=== PATIENT | female | born 1940 | race Caucasian/White ===

== ENCOUNTER 2019-11-07 18:30 | Emergency (ER) | payer MEDICARE ==
[~2019-11-07] VITALS: Ht 157.5 cm; Wt 54.4 kg
[2019-11-07] MEDS ORDERED: Bumetanide0.5 MG PO (18:39)
[2019-11-07] MEDS ORDERED: PROAIR DIGIHAL90 MCG IH (18:39)
[2019-11-07] MEDS ORDERED: BACITO TOP (20:41)
[2019-11-07] MEDS ORDERED: Norco 5-325 Ta1 EACH PO (20:42)
== END 2019-11-07 22:01 | disposition home or self-care (01) ==
LOC: ER 18:30
DX: S51.811A Laceration without foreign body of right forearm, initial encounter (principal); S81.812A Laceration without foreign body, left lower leg, initial encounter; M25.511 Pain in right shoulder; J44.9 Chronic obstructive pulmonary disease, unspecified; Z88.5 Allergy status to narcotic agent; Z87.891 Personal history of nicotine dependence; Z23 Encounter for immunization; W10.0XXA Fall (on)(from) escalator, initial encounter
CPT/HCPCS: 70450; 72125; 73030; 73080; 73090; 73590; 90471; 90714; 99284-25; A9270-GY

== ENCOUNTER 2021-02-12 00:18 | Inpatient (IN) | payer OTHER, MEDICARE ==
[~2021-02-12] VITALS: Ht 157.5 cm; Wt 56.7 kg
[~2021-02-12 00:18] MED LIST: BACITO TOP; Bumetanide0.5 MG PO; Norco 5-325 Ta1 EACH PO; PROAIR DIGIHAL90 MCG IH
[2021-02-12 03:27] LABS: BASOPHILS ABSOLUTE AUTO 0.03 K/mm3 (0.00-0.23); BASOPHILS PERCENT AUTO 0 % (0-2); EOSINOPHILS ABSOLUTE AUTO 0.05 K/mm3 (0.00-0.68); EOSINOPHILS PERCENT AUTO 1 % (0-6); Hematocrit 40.8 % (33.0-51.0); Hemoglobin 13.1 g/dL (11.5-16.0); IMMATURE GRAN ABSOLUTE AUTO 0.04 K/mm3 (0.00-0.10); IMMATURE GRAN PERCENT AUTO 0 % (0-1); LYMPHOCYTES ABSOLUTE AUTO 1.43 K/mm3 (0.84-5.20); LYMPHOCYTES PERCENT AUTO 13 % (21-46); MONOCYTES ABSOLUTE AUTO 0.56 K/mm3 (0.16-1.47); MONOCYTES PERCENT AUTO 5 % (4-13); Mean Corpuscular HGB Conc 32.1 g/dL (31.5-36.5); Mean Corpuscular Volume 97 fL (80-100); Mean Platelet Volume 11.2 fL (9.1-12.4); NEUTROPHILS ABSOLUTE AUTO 8.77 K/mm3 (1.96-9.15); NEUTROPHILS PERCENT AUTO 81 % (41-73); Platelet Count 193 K/mm3 (150-400); RDW Coefficient Variation 12.5 % (11.7-14.2); RDW Standard Deviation 44.6 fL (35.1-46.3); Red Blood Cell Count 4.22 M/mm3 (3.80-5.20); White Blood Cell Count 10.88 K/mm3 (4.00-11.30)
[2021-02-12 03:45] LABS: International Normalized Ratio 0.92; Prothrombin Time Results 9.7 Sec (9.7-11.5)
[2021-02-12 04:00] LABS: Alanine Aminotransfer (ALT/SGP 28 U/L (12-78); Albumin, Blood 3.5 g/dL (3.4-5.0); Albumin/Globulin Ratio 1.1 (0.8-1.8); Alk Phos 91 U/L (50-136); Anion Gap 8 mmol/L (6-16); Aspartate Aminotrans (AST/SGOT 33 U/L (12-37); Bilirubin, Total 0.4 mg/dL (0.1-1.0); Blood Urea Nitrogen 15 mg/dL (8-24); Bun/Creatinine Ratio 24.9 (12.0-20.0); CO2, Blood 30 mmol/L (21-32); Calcium, Blood 8.7 mg/dL (8.5-10.1); Chloride, Blood 106 mmol/L (98-108); Globulin, Blood 3.2 g/dL (2.2-4.0); Glomerular Filtration Rate >60 (60-); Glucose, Blood 110 mg/dL (70-99); Potassium, Blood 3.9 mmol/L (3.5-5.5); Sodium, Blood 144 mmol/L (136-145); Total Protein, Blood 6.7 g/dL (6.4-8.2)
[2021-02-12 04:30] LABS: Influenza A, PCR NEGATIVE (NEGATIVE); Influenza B, PCR NEGATIVE (NEGATIVE); Resp Syncytial Virus, PCR NEGATIVE (NEGATIVE); SARS-Cov-2 (COVID-19) PCR, MMC NEGATIVE (NEGATIVE)
[2021-02-12 04:35] LABS: Source, Urine Catheter
[2021-02-12 04:44] LABS: Bilirubin, Urine Neg (Neg); Blood, Urine 2+ (Neg); Glucose Qualitative, Urine Neg (Neg); Ketones, Urine Neg (Neg); Leukocyte Esterase, Urine 2+ (Neg); Nitrite, Urine Neg (Neg); Protein, Urine 2+ (Neg); Urobilinogen, Urine NORM (Normal)
[2021-02-12 05:08] LABS: Appearance, Urine Hazy (Clear); Color, Urine Pale Yellow (P-Yellow)
[2021-02-12 05:10] LABS: Bacteria Few /hpf; Red Blood Cells, Urine 0-2 /hpf (0-2); Squamous Epithelial Cells Rare /hpf (Few)
--- NOTE | 2021-02-12 06:02 | NUR ---
PT DENIED MAKING STATEMENT ABOUT HARMING HERSELF, NO SUCH BEHAVIOR DISPLAYED
--- NOTE | 2021-02-12 06:48 | NUR ---
PT ADMITTED FROM ED AT AROUND 0530. ARRIVED BY STRETCHER AND WAS ASSISTED WITH GOING TO BED WHERE SHE REMAINS AND IS RESTING COMFORTABLY. SHE IS ALERT AND ORIENTED, CONDITION IS STABLE. SHE STATED SHE DID NOT HAVE ANY PAIN AT THE TIME SHE ARRIVED HERE. HER BP WAS ELEVATED, DR HARRIS WAS NOTIFIED AND SAID TO GIVE HER HYDRALAZINE 10MG IV. SHE IS ASSISTED WITH OTHER CARE AND ADLS, MEDICATED INDICATED. PT ENCOURAGED TO CALL FOR HELP WHEN ASSISTANCE IS NEEDED. CALL LIGHT PROVIDED.
[2021-02-12 09:27] LABS: Magnesium, Blood 1.5 mg/dL (1.6-2.4); Phosphorus, Blood 3.5 mg/dL (2.5-4.9); Thyroid Stimulating Hormone 4.25 uIU/mL (0.360-4.800)
[2021-02-12 11:46] LABS: U Cannabinoids Screen DETECTED; U Opiates Screen DETECTED
[2021-02-12 11:47] LABS: U Amphetamine Screen Not Detected; U Barbituate Screen Not Detected; U Benzodiazapine Screen Not Detected; U Buprenorphine Screen Not Detected; U Cocaine Screen Not Detected; U Methadone Screen Not Detected; U Methamphetamine Screen Not Detected; U Oxycodone Screen Not Detected; U Phencyclidine Screen Not Detected; U Propoxyphene Screen Not Detected
[2021-02-12 12:14] LABS: BASOPHILS ABSOLUTE AUTO 0.03 K/mm3 (0.00-0.23); BASOPHILS PERCENT AUTO 0 % (0-2); EOSINOPHILS PERCENT AUTO 0 % (0-6); Hemoglobin 12.3 g/dL (11.5-16.0); IMMATURE GRAN ABSOLUTE AUTO 0.04 K/mm3 (0.00-0.10); IMMATURE GRAN PERCENT AUTO 0 % (0-1); LYMPHOCYTES ABSOLUTE AUTO 0.61 K/mm3 (0.84-5.20); LYMPHOCYTES PERCENT AUTO 6 % (21-46); MONOCYTES ABSOLUTE AUTO 0.59 K/mm3 (0.16-1.47); MONOCYTES PERCENT AUTO 5 % (4-13); Mean Corpuscular HGB 31.2 pg (26.0-34.0); Mean Corpuscular HGB Conc 32.4 g/dL (31.5-36.5); Mean Corpuscular Volume 96 fL (80-100); Mean Platelet Volume 11.4 fL (9.1-12.4); NEUTROPHILS ABSOLUTE AUTO 9.57 K/mm3 (1.96-9.15); NEUTROPHILS PERCENT AUTO 88 % (41-73); Platelet Count 154 K/mm3 (150-400); RDW Coefficient Variation 12.5 % (11.7-14.2); RDW Standard Deviation 44.5 fL (35.1-46.3); Red Blood Cell Count 3.94 M/mm3 (3.80-5.20); White Blood Cell Count 10.84 K/mm3 (4.00-11.30)
[2021-02-12 12:24] LABS: Alanine Aminotransfer (ALT/SGP 26 U/L (12-78); Albumin, Blood 3.1 g/dL (3.4-5.0); Alk Phos 84 U/L (50-136); Anion Gap 5 mmol/L (6-16); Aspartate Aminotrans (AST/SGOT 27 U/L (12-37); Bilirubin, Total 0.6 mg/dL (0.1-1.0); Blood Urea Nitrogen 17 mg/dL (8-24); Bun/Creatinine Ratio 24.6 (12.0-20.0); CO2, Blood 31 mmol/L (21-32); Calcium, Blood 8.3 mg/dL (8.5-10.1); Chloride, Blood 107 mmol/L (98-108); Creatinine, Blood 0.69 mg/dL (0.40-1.00); Glomerular Filtration Rate >60 (60-); Glucose, Blood 141 mg/dL (70-99); Potassium, Blood 3.9 mmol/L (3.5-5.5); Sodium, Blood 143 mmol/L (136-145); Total Protein, Blood 6.1 g/dL (6.4-8.2)
--- NOTE | 2021-02-12 17:20 | NUR ---
PATIENT WITH C/O NAUSEA AND DISCOMFORT THIS A.M., ZOFRAN NOT HELPFUL PER PATIENT. PO PHENERGAN GIVEN ALONG WITH TYLENOL AND PT. HAS DENIED NAUSEA ALL DAY. DENIES PAIN AND HAS BEEN SLEEPING. NOTED FINE TREMORS ONLY IN HANDS WHEN HOLDING. DAUGHTER IN TO VISIT TODAY, PT. IS DROWSY AND ORIENTED X 4. SCORING 1 ON CIWA, THIS A.M. FOR NAUSEA, THIS PM FOR FINE TREMORS IN HANDS. DOZING AT THIS TIME. BANNANA BAG INFUSED AND NORMAL SALINE INFUSING AT THIS TIME. BLISS PATENT DRAINING CLEAR JAVIER URINE. CALL LIGHT IN REACH.
--- NOTE | 2021-02-13 03:52 | NUR ---
ORTHOPEDIC ANSWERING SERVICE MADE AWARE OF CONSULT.
[2021-02-13 04:19] LABS: BASOPHILS ABSOLUTE AUTO 0.03 K/mm3 (0.00-0.23); BASOPHILS PERCENT AUTO 0 % (0-2); EOSINOPHILS ABSOLUTE AUTO 0.08 K/mm3 (0.00-0.68); EOSINOPHILS PERCENT AUTO 1 % (0-6); Hematocrit 35.5 % (33.0-51.0); Hemoglobin 11.1 g/dL (11.5-16.0); IMMATURE GRAN ABSOLUTE AUTO 0.02 K/mm3 (0.00-0.10); IMMATURE GRAN PERCENT AUTO 0 % (0-1); LYMPHOCYTES PERCENT AUTO 19 % (21-46); MONOCYTES ABSOLUTE AUTO 0.53 K/mm3 (0.16-1.47); MONOCYTES PERCENT AUTO 8 % (4-13); Mean Corpuscular HGB 31.2 pg (26.0-34.0); Mean Corpuscular HGB Conc 31.3 g/dL (31.5-36.5); Mean Corpuscular Volume 100 fL (80-100); Mean Platelet Volume 11.4 fL (9.1-12.4); NEUTROPHILS ABSOLUTE AUTO 5.08 K/mm3 (1.96-9.15); NEUTROPHILS PERCENT AUTO 72 % (41-73); Platelet Count 116 K/mm3 (150-400); RDW Coefficient Variation 12.8 % (11.7-14.2); RDW Standard Deviation 46.8 fL (35.1-46.3); Red Blood Cell Count 3.56 M/mm3 (3.80-5.20); White Blood Cell Count 7.04 K/mm3 (4.00-11.30)
--- NOTE | 2021-02-13 04:34 | NUR ---
SHIFT SUMMARY PT A/X4, VSS. PAIN CONTROLLED WITH PRN MEDICATIONS/ICE THERAPY CONTINUOUS FLUIDS INFUSING. NPO FOR POSSIBLE SURGERY 02/13. PT RESTED THROUGH THE NIGHT. BLISS IN PLACE DRAINING DARK YELLOW URINE. WCTM
[2021-02-13 05:00] LABS: Anion Gap 6 mmol/L (6-16); Blood Urea Nitrogen 22 mg/dL (8-24); Bun/Creatinine Ratio 31.5 (12.0-20.0); CO2, Blood 31 mmol/L (21-32); Calcium, Blood 8.3 mg/dL (8.5-10.1); Chloride, Blood 108 mmol/L (98-108); Glomerular Filtration Rate >60 (60-); Glucose, Blood 95 mg/dL (70-99); Magnesium, Blood 1.8 mg/dL (1.6-2.4); Phosphorus, Blood 3.3 mg/dL (2.5-4.9); Potassium, Blood 3.8 mmol/L (3.5-5.5); Sodium, Blood 145 mmol/L (136-145)
--- NOTE | 2021-02-13 16:46 | NUR ---
SHIFT SUMMARY PT IS AWAITING SURGERY, POSSIBLY TOMORROW. PAIN MANAGED WITH IV FENT X1 THIS SHIFT, ZOFRAN GIVEN WITH FENT FOR NAUSEA. BLISS DRAINING CLEAR YELLOW URINE. PT HAD BEDBATH AND WAS CLEANED WITH CHG WIPES IN PREPARATION FOR SURGERY. PT IS TOLERATING PO THIS EVENING AND WILL BE NPO AFTER MN. PT'S DAUGHTER WAS AT THE BEDSIDE FOR REPORT THIS AFTERNOON. VSS. WILL MONITOR UNTIL REPORT TO NOC RN.
--- NOTE | 2021-02-13 19:45 | NUR ---
976 ML OF 0.9 INFUSED ON PUMP. NO DAY INPUT CHARTED. 976 ML CHARTED AND PUMP INTAKE CLEARED AT THIS TIME.
--- NOTE | 2021-02-14 04:12 | NUR ---
SHIFT SUMMARY PT A/OX4, VSS.PT ON 1.5L NC. EDUCATED PT ON THE IMPORTANCE OF SHIFTING WEIGHT IN BED TO DECREASE THE CHANCE OF SKIN BREAK DOWN. PT ABLE TO MOVE ON HER OWN, BUT STAFF ASSISTED WITH ELEVATING HEELS AND BOOSTING UP IN BED. BLISS CATHETER NOTED AND DRAINING CLEAR YELLOW URINE. 0.9 INFUSING PER ORDERS. NPO SINCE 0000 FOR SURGERY. PAIN CONTROLLED WITH PRN MEDICAITONS. WCTM.
[2021-02-14 04:28] LABS: BASOPHILS ABSOLUTE AUTO 0.03 K/mm3 (0.00-0.23); BASOPHILS PERCENT AUTO 0 % (0-2); EOSINOPHILS ABSOLUTE AUTO 0.26 K/mm3 (0.00-0.68); EOSINOPHILS PERCENT AUTO 3 % (0-6); Hematocrit 33.9 % (33.0-51.0); Hemoglobin 10.7 g/dL (11.5-16.0); IMMATURE GRAN ABSOLUTE AUTO 0.02 K/mm3 (0.00-0.10); IMMATURE GRAN PERCENT AUTO 0 % (0-1); LYMPHOCYTES ABSOLUTE AUTO 1.35 K/mm3 (0.84-5.20); LYMPHOCYTES PERCENT AUTO 18 % (21-46); MONOCYTES ABSOLUTE AUTO 0.61 K/mm3 (0.16-1.47); MONOCYTES PERCENT AUTO 8 % (4-13); Mean Corpuscular HGB 31.2 pg (26.0-34.0); Mean Corpuscular HGB Conc 31.6 g/dL (31.5-36.5); Mean Corpuscular Volume 99 fL (80-100); Mean Platelet Volume 11.5 fL (9.1-12.4); NEUTROPHILS ABSOLUTE AUTO 5.35 K/mm3 (1.96-9.15); NEUTROPHILS PERCENT AUTO 70 % (41-73); Platelet Count 112 K/mm3 (150-400); RDW Coefficient Variation 12.2 % (11.7-14.2); RDW Standard Deviation 44.3 fL (35.1-46.3); Red Blood Cell Count 3.43 M/mm3 (3.80-5.20); White Blood Cell Count 7.62 K/mm3 (4.00-11.30)
[2021-02-14 05:37] LABS: Alanine Aminotransfer (ALT/SGP 21 U/L (12-78); Albumin, Blood 2.5 g/dL (3.4-5.0); Albumin/Globulin Ratio 0.9 (0.8-1.8); Alk Phos 73 U/L (50-136); Anion Gap 5 mmol/L (6-16); Aspartate Aminotrans (AST/SGOT 20 U/L (12-37); Bilirubin, Total 0.8 mg/dL (0.1-1.0); Blood Urea Nitrogen 13 mg/dL (8-24); Bun/Creatinine Ratio 18.6 (12.0-20.0); CO2, Blood 31 mmol/L (21-32); Calcium, Blood 8.2 mg/dL (8.5-10.1); Chloride, Blood 106 mmol/L (98-108); Globulin, Blood 2.9 g/dL (2.2-4.0); Glomerular Filtration Rate >60 (60-); Glucose, Blood 94 mg/dL (70-99); Magnesium, Blood 1.6 mg/dL (1.6-2.4); Phosphorus, Blood 2.4 mg/dL (2.5-4.9); Potassium, Blood 3.8 mmol/L (3.5-5.5); Sodium, Blood 142 mmol/L (136-145); Total Protein, Blood 5.4 g/dL (6.4-8.2)
--- NOTE | 2021-02-14 15:05 | NUR ---
02/14/21 1505 Katie Bates PATIENT ARRIVED TO OR WITH A BLISS CATHETER IN PLACE DRAINING CLEAR, YELLOW URINE.
--- NOTE | 2021-02-14 17:02 | NUR ---
PT'S DAUGHTER NOTIFIED PT IS COMING BACK TO THE ROOM FROM PACU.
--- NOTE | 2021-02-14 19:06 | NUR ---
SHIFT SUMMARY PT HAD SURGERY TODAY AND ARRIVED BACK TO HER ROOM FROM PACU AT 1702. PT RESTLESS AND CONFUSED ASKING WHERE SHE IS AT AND WHAT HAPPENED. PT ALSO REPORTED FEELING NAUSEATED, ZOFRAN GIVEN. SINCE ZOFRAN WAS GIVEN PT HAS BEEN RESTING QUIETLY IN BED AND APPEARS TO BE SLEEPING. VSS. CIWA SCORE 0 TODAY. PT IS NOW WAKING UP AND EATING DINNER. QUESTIONS ANSWERED AND PT APPEARS TO BE RESPONDING WELL TO REORIENTATION. VSS. REPORT GIVEN TO TERI OROZCO.
--- NOTE | 2021-02-15 03:28 | NUR ---
SHIFT SUMMARY POD1 R HIP GAMMA NAILING. AQUACEL OVER INCISION, SCANT AMOUNT OF RED DRAINAGE, DRY AND INTACT. VSS. NO PAIN REPORTED THROUGHOUT SHIFT. TOLERATING PO INTAKE. BLISS DRAINING CLEAR YELLOW URINE. BEDREST THROUGHOUT SHIFT. WILL REPORT TO ONCOMING RN.
[2021-02-15 04:58] LABS: BASOPHILS ABSOLUTE AUTO 0.01 K/mm3 (0.00-0.23); BASOPHILS PERCENT AUTO 0 % (0-2); EOSINOPHILS PERCENT AUTO 0 % (0-6); Hematocrit 30.5 % (33.0-51.0); Hemoglobin 9.8 g/dL (11.5-16.0); IMMATURE GRAN ABSOLUTE AUTO 0.04 K/mm3 (0.00-0.10); IMMATURE GRAN PERCENT AUTO 1 % (0-1); LYMPHOCYTES ABSOLUTE AUTO 0.38 K/mm3 (0.84-5.20); LYMPHOCYTES PERCENT AUTO 5 % (21-46); MONOCYTES ABSOLUTE AUTO 0.43 K/mm3 (0.16-1.47); MONOCYTES PERCENT AUTO 6 % (4-13); Mean Corpuscular HGB 31.2 pg (26.0-34.0); Mean Corpuscular HGB Conc 32.1 g/dL (31.5-36.5); Mean Corpuscular Volume 97 fL (80-100); Mean Platelet Volume 12.3 fL (9.1-12.4); NEUTROPHILS ABSOLUTE AUTO 6.82 K/mm3 (1.96-9.15); NEUTROPHILS PERCENT AUTO 89 % (41-73); Platelet Count 135 K/mm3 (150-400); RDW Coefficient Variation 11.9 % (11.7-14.2); RDW Standard Deviation 42.5 fL (35.1-46.3); Red Blood Cell Count 3.14 M/mm3 (3.80-5.20); White Blood Cell Count 7.68 K/mm3 (4.00-11.30)
[2021-02-15 05:14] LABS: Alanine Aminotransfer (ALT/SGP 21 U/L (12-78); Albumin, Blood 2.4 g/dL (3.4-5.0); Albumin/Globulin Ratio 0.7 (0.8-1.8); Alk Phos 66 U/L (50-136); Anion Gap 6 mmol/L (6-16); Aspartate Aminotrans (AST/SGOT 19 U/L (12-37); Bilirubin, Total 0.5 mg/dL (0.1-1.0); Blood Urea Nitrogen 12 mg/dL (8-24); Bun/Creatinine Ratio 21.3 (12.0-20.0); CO2, Blood 33 mmol/L (21-32); Calcium, Blood 8.5 mg/dL (8.5-10.1); Chloride, Blood 101 mmol/L (98-108); Creatinine, Blood 0.56 mg/dL (0.40-1.00); Globulin, Blood 3.3 g/dL (2.2-4.0); Glomerular Filtration Rate >60 (60-); Glucose, Blood 124 mg/dL (70-99); Magnesium, Blood 1.9 mg/dL (1.6-2.4); Potassium, Blood 3.7 mmol/L (3.5-5.5); Sodium, Blood 140 mmol/L (136-145); Total Protein, Blood 5.7 g/dL (6.4-8.2)
--- NOTE | 2021-02-16 03:53 | NUR ---
SHIFT SUMMARY POD2 R HIP GAMMA NAILING, AQUACEL OVER INCISION WITH SCANT AMOUNT OF RED DRIED DRAINAGE, INTACT. AMBULATING TO BATHROOM WITH FWW AND GB, STAND BY ASSIST. VOIDING AND PASSING STOOL. VSS. 2L NC 96%. TOLERATING PO INTAKE. PAIN MEDICATION GIVEN PER EMAR 1X THIS SHIFT. WILL REPORT TO ONCOMING RN.
[2021-02-16] MEDS ORDERED: ASPI81CH PO (13:50)
[2021-02-16] MEDS ORDERED: DOCU100 (13:51)
[2021-02-16] MEDS ORDERED: COLACE100 MG PO (13:52)
[2021-02-16] MEDS ORDERED: FAMO20 PO (13:53)
[2021-02-16] MEDS ORDERED: METO25 PO (13:54)
[2021-02-16] MEDS ORDERED: Percocet 5-3251 EACH PO (13:55)
--- NOTE | 2021-02-16 14:48 | NUR ---
DISCHARGE PATIENT DISCHARGED IN STABLE CONDITION HOME. PERIPHERAL IV REMOVED, TELE MONITORING DC. PATIENT VERBALIZED UNDERSTANDING OF INSTRUCTIONS. ALL BELONGINGS PACKED AND SENT WITH PATIENT, PATIENT TAKEN TO FRONT ENTRANCE VIA WHEELCHAIR WITH ASSISTANCE FROM RN
== END 2021-02-16 14:42 | disposition home or self-care (01) | DRG 481 ==
LOC: ER 00:18 → SURS 04:26
PROVIDERS: Family Medicine; Orthopaedic Surgery; Student in an Organized Health Care Education/Training Program; ADMIT Internal Medicine
PROC: 0QS606Z Reposition Right Upper Femur with Intramedullary Internal Fixation Device, Open Approach (ICD-10-PCS; principal; 2021-02-14 13:30)
DX: S72.141A Displaced intertrochanteric fracture of right femur, initial encounter for closed fracture (principal); J96.11 Chronic respiratory failure with hypoxia; Z20.822 Contact with and (suspected) exposure to COVID-19; J44.9 Chronic obstructive pulmonary disease, unspecified; F10.10 Alcohol abuse, uncomplicated; R00.0 Tachycardia, unspecified; D64.9 Anemia, unspecified; D69.6 Thrombocytopenia, unspecified; W01.0XXA Fall on same level from slipping, tripping and stumbling without subsequent striking against object, initial encounter; Z99.81 Dependence on supplemental oxygen; Z88.5 Allergy status to narcotic agent; Z79.899 Other long term (current) drug therapy; Z87.891 Personal history of nicotine dependence; Y92.009 Unspecified place in unspecified non-institutional (private) residence as the place of occurrence of the external cause
CPT/HCPCS: 0241U; 36415; 51702; 71045; 73502; 73552; 80048; 80053; 81001; 83690; 83735; 84100; 84443; 85025; 85610; 85730; 87086; 93005; 93010; 94762; 96374; 96375; 96376; 97110; 97116; 97162; 97530; 99285-25; A9270; C1713; C1769; G0480; J0360; J0690; J1650; J1885; J2270; J2405; J2704; J3010; J3411; J3475; J7030; J7042; J7060; J7120